=== PATIENT | female | born 1970 | race Caucasian/White ===

== ENCOUNTER 2020-03-03 13:10 | Emergency (ER) | payer BC ==
[~2020-03-03] VITALS: Ht 157.5 cm; Wt 59.4 kg
[2020-03-03] MEDS ORDERED: LIPITOR10 MG PO (13:38)
[2020-03-03] MEDS ORDERED: CELEXA 10 MG TA10 M1 PO (13:38)
[2020-03-03] MEDS ORDERED: PREMARIN0.3 MG PO (13:38)
[2020-03-03 13:58] LABS: ABSOLUTE EOSINOPHILS 0.1 thou/uL (0.0-0.7); ABSOLUTE LYMPHOCYTES 2.2 thou/uL (0.8-5.3); ABSOLUTE MONOCYTES 0.4 thou/uL (0.0-1.2); ABSOLUTE NEUTROPHILS 3.3 thou/uL (1.6-8.1); BASOPHILS 0.3 %; EOSINOPHILS 0.9 %; HEMATOCRIT 38.4 % (37.0-47.0); HEMOGLOBIN 13.2 gm/dL (12.0-15.0); LYMPHOCYTES 37.1 %; MCH 31.6 pg (26.0-34.0); MCHC 34.4 g/dL (28.0-37.0); MCV 91.7 fL (80.0-100.0); MONOCYTES 6.4 %; MPV 8.6 fl. (7.2-11.1); NUCLEATED RBCS 0 /100WBC; PLATELET COUNT* 261 thou/uL (150-400); POLYS 55.3 %; RBC 4.19 mil/uL (4.20-5.00); RDW-CV 12.3 % (10.5-14.5); WBC 5.9 thou/uL (4.0-11.0)
[2020-03-03 14:10] LABS: CALCIUM 9.3 mg/dL (8.5-10.1); CREATININE 0.9 mg/dL (0.6-1.3); POTASSIUM 3.8 mmol/L (3.5-5.1)
[2020-03-03 14:21] LABS: ALBUMIN 3.6 g/dL (3.4-5.0); TOTAL BILIRUBIN 0.4 mg/dL (<0.1-1.0); TOTAL PROTEIN 7.6 g/dL (6.4-8.2)
[2020-03-03] MEDS ORDERED: ZPAK PO (16:08)
[2020-03-03] MEDS ORDERED: VENTOLIN HFA 1818 GM INH (16:08)
[2020-03-03] MEDS ORDERED: PREDNISONE 20 M20 MG PO (16:08)
[2020-03-03 16:32] VITALS: BP 124/61
--- NOTE | 2020-03-03 16:35 | EKG ---
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 03/03/20 1635 04 04 iNls Regalado MD, [facility] /EPI
== END 2020-03-03 16:32 | disposition home or self-care (01) ==
LOC: M.ERS 13:10
PROVIDERS: Nurse Practitioner Family
DX: U07.1 COVID-19 (principal); E11.9 Type 2 diabetes mellitus without complications; Z90.710 Acquired absence of both cervix and uterus

== ENCOUNTER 2020-07-11 13:16 | Observation (INO) | payer OTHER ==
[~2020-07-11] VITALS: Ht 157.5 cm; Wt 62.6 kg
--- NOTE | ~2020-07-11 | H ---
[address] [address] HISTORY AND PHYSICAL Name: ALYX CASTELLANOS Room: [address] Elizabeth Pinto#: [id number] Admission: 07/11/20 Attend Phys: Antwan Morales Discharge: 07/13/20 Date of : [birth year] Report #: [id number] THIS REPORT FOR: cc: Ruperto Reyna Robin L. FNP [facility],Medical Records Staff ~ For History and Physical please refer to the consultation note in the patient's medical record. By: [id number] Records Staff [facility] /ROYCE
[~2020-07-11 13:16] MED LIST: CELEXA 10 MG TA10 M1 PO; LIPITOR10 MG PO; PREDNISONE 20 M20 MG PO; PREMARIN0.3 MG PO; VENTOLIN HFA 1818 GM INH; ZPAK PO
[2020-07-11 13:26] VITALS: BP 123/50
[2020-07-11] MEDS ORDERED: TRAZODONE HCL100 MG PO (13:29)
[2020-07-11 13:33] LABS: URINE BILIRUBIN NEGATIVE (Negative); URINE BLOOD NEGATIVE (Negative); URINE CLARITY CLEAR; URINE COLOR YELLOW; URINE GLUCOSE-RANDOM NEGATIVE (Negative); URINE KETONES NEGATIVE (Negative); URINE LEUKOCYTES-REFLEX NEGATIVE (Negative); URINE NITRITE-REFLEX NEGATIVE (Negative); URINE PROTEIN NEGATIVE (Negative); URINE UROBILINOGEN 0.2 E.U./dl (0.2-1.0)
[2020-07-11 13:42] LABS: ABSOLUTE BASOPHILS 0.1 thou/uL (0.0-0.2); ABSOLUTE EOSINOPHILS 0.1 thou/uL (0.0-0.7); ABSOLUTE MONOCYTES 0.4 thou/uL (0.0-1.2); ABSOLUTE NEUTROPHILS 3.7 thou/uL (1.6-8.1); BASOPHILS 0.9 %; EOSINOPHILS 0.8 %; HEMATOCRIT 36.9 % (37.0-47.0); LYMPHOCYTES 31.5 %; MCHC 35.3 g/dL (28.0-37.0); MCV 93.5 fL (80.0-100.0); MONOCYTES 6.7 %; MPV 8.7 fl. (7.2-11.1); NUCLEATED RBCS 0 /100WBC; PLATELET COUNT* 257 thou/uL (150-400); POLYS 60.1 %; RBC 3.95 mil/uL (4.20-5.00); RDW-CV 12.8 % (10.5-14.5); WBC 6.2 thou/uL (4.0-11.0)
[2020-07-11 13:53] LABS: POTASSIUM 3.8 mmol/L (3.5-5.1)
[2020-07-11 14:04] LABS: ALBUMIN 3.7 g/dL (3.4-5.0); TOTAL BILIRUBIN 0.4 mg/dL (<0.1-1.0); TOTAL PROTEIN 8.1 g/dL (6.4-8.2)
[2020-07-11 17:36] VITALS: BP 120/57
[2020-07-11 20:30] VITALS: BP 116/48
--- NOTE | 2020-07-12 10:29 | EKG ---
[place] [address] ELECTROCARDIOGRAM REPORT Name: ALYX CASTELLANOS Room: [address]#: [id number] Admission: 07/11/20 Attend Phys: Antwan Steward Discharge: Date of : 72 Date of Service: 07/11/20 1336 Report #: [id number] THIS REPORT FOR: //name// 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
[2020-07-12 15:52] VITALS: BP 98/40
[2020-07-12 20:07] VITALS: BP 119/54
[2020-07-13 01:10] VITALS: BP 111/55
[2020-07-13 04:20] VITALS: BP 111/46
[2020-07-13 07:10] VITALS: BP 133/72
[2020-07-13 09:36] VITALS: BP 133/72
--- NOTE | 2020-07-14 11:08 | OP ---
[facility] [address] [place] [address] OPERATIVE REPORT Name: ALYX CASTELLANOS Room: [address] Elizabeth Pinto#: [id number] Admission: 07/11/20 Attend Phys: Antwan Morales Discharge: 07/13/20 Date of : 72 Report #: [id number] THIS REPORT FOR: cc: Ruperto Reyna Robin L. FNP Patterson, Jonathan D. MD ~ DOC #: [id number] Antwan Morales MD DATE OF SURGERY: 07/12/2020 PREOPERATIVE DIAGNOSIS: Acute appendicitis. POSTOPERATIVE DIAGNOSIS: Acute appendicitis. PROCEDURE: Laparoscopic appendectomy. SURGEON: Antwan Morales MD TYPE OF ANESTHESIA: General. ESTIMATED BLOOD LOSS: Minimal. SPECIMENS: Appendix. DESCRIPTION OF PROCEDURE: After informed consent was obtained, the patient was brought to the operating room and placed supine. SCDs were placed and working. Preoperative antibiotics were administered. General anesthesia was induced. The abdomen was prepped and draped in the usual sterile fashion. A 10 mm incision was made below the umbilicus. Fascia was incised and a trocar was placed. Pneumoperitoneum was established. Right upper quadrant and left lower quadrant 5 mm trocars were placed. The appendix was grasped and retracted anteriorly. A window was made in the mesoappendix. The mesoappendix was ligated with a FARHAN montemayor load stapler. Base of the appendix was ligated using a PDS Endoloop stitch. The appendix was removed through an Endopouch. The fascia was closed with a jucajh-bi-ydxwo 0 Vicryl. Skin was closed with 4-0 Monocryl. Incisions were sealed with Steri-Strips. COMPLICATIONS: None. DISPOSITION: The patient was taken to recovery in satisfactory condition. [place] [address] OPERATIVE REPORT Name: ALYX CASTELLANOS [address] [id number] Admission: 07/11/20 Attend Phys: Antwan Morales Discharge: 07/13/20 Date of : 72 Report #: [id number] WILFRED/ROSANA <ELECTRONICALLY SIGNED> By: Antwan Morales MD 07/14/20 1108 1020 1143Antwan Morales MD /nt
--- NOTE | 2020-07-14 15:08 | PATH ---
[facility] [address] [place] [address] PATHOLOGY RPT PROCEDURE Name: ALYX NAGEL Room: [address] MWaltRWalt#: [id number] Admission: 07/11/20 Date of : 72 Discharge: 07/13/20 Report #: [id number] Path Case #: [id number] [facility] Accession Number: [id number] . 01 Material submitted: . appendix - APPENDIX . 01 Clinical history: . APPENDICITIS . 02 Diagnosis: Appendix: - Benign and non-inflamed appendix. (SAHARA:jamee; 07/14/2020) [facility] 07/14/2020 1324 Local . 02 Electronically signed: . Jack Wong MD, Pathologist NPI- [id number] . 01 Gross description: . The specimen is received in formalin, labeled "Alyx Nagel", "appendix". Received is an unoriented, intact veriform appendix measuring 4.4 cm in length and up to 0.4 cm in diameter. The serosal surface displays a smooth, pale-chakraborty appearance with a thick layer of adhered bright yellow lobulated adipose tissue. Sectioning through the appendix reveals a patent lumen free of fecaliths and mass lesions. The appendix is sectioned and entirely submitted in cassettes A1 and A2.(SNA; 07/13/2020) ALEX/YOGI 07/13/2020 0830 Local . 02 Pathologist provided ICD-10: K35.80 . 02 CPT . 610397 Specimen Comment: A courtesy copy of this report has been sent to [phone], [phone] Specimen Comment: [id number] Specimen Comment: Report sent to / DR VARGHESE Performed at: 01 [facility] [address], [place] [id number] MD Tj Davis MD Phone: [phone] Performed at: 02 [facility] [address], [place], [place] [id number] MD Jack Wong MD Phone: [phone]
== END 2020-07-13 11:37 | disposition home or self-care (01) ==
LOC: M.ERS 13:16 → M.ORTHSURG 14:55 → M.TBA-ER 14:55 → M.ORTHSURG 17:42
PROVIDERS: Family Medicine; ADMIT Surgery; ATTEND Surgery
DX: K35.80 Unspecified acute appendicitis (principal); Z20.822 Contact with and (suspected) exposure to COVID-19; E78.5 Hyperlipidemia, unspecified; F32.9 Major depressive disorder, single episode, unspecified; Z90.710 Acquired absence of both cervix and uterus; Z79.899 Other long term (current) drug therapy